=== PATIENT | male | born 1975 | race Caucasian/White ===

== ENCOUNTER 2021-09-04 17:00 | Outpatient (RCR) | payer OTHER, SELFPAY ==
--- NOTE | 2021-08-07 18:54 | HP.PTEVAL_ITS ---
Patient's Visit Information CAROLINE BENNETT is a 45 year old M referred to Physical Therapy by ALYSSA PASTRANA with a diagnosis of ACUTE LOW BACK PAIN WITH BILATERAL SCIATICA. Date of Evaluation: 08/07/21 Physical Therapist: Donavon Sánchez, PT, Cert MDT, OCS - Visit Plan Frequency: 2x /Week Duration: 4 Weeks Plan: PT INTERVETIONS GRADED POSTURAL EX'S ,DLS ,LE FLEXABLITY AND LUMBAR RO SOBIA AND MODALTIES. MODALTIES NOT COVERED - Subjective This 45 y/o male presents to physical therapy with acute bilateral LBP with radicular symptoms right leg. Onset of pain 2 months ago initial injury. Patient has had prior lumbar surgery 2013 lumbar discectomy L5-S1 then had revision 2015 L5-S1. Initially ,symptoms got better but still had mild symptoms. Most recently, carrying case of water from car ,felt muscle spasm right side then immediately developed radicular symptom right side. Then had mild symptoms left leg. but eventually symptoms went away. Seen DR recommended PT and flexural . Due to recent onset of pain ,patient uses cane . Aggravating factors walking, standing < less 2 minutes, bending or lifting. Alleviating resting ,sitting . Denies paresthesia/tingling ,but occasional right foot with burning. Coughing/sneezing+. Bowel/bladder -. Sleeping is pain at night. Job requires sitting. Patient pain and radicular symptoms affects job demands /QOL and walking. In past ,seen pain management injection didn't help. Prior PT did see therapist few visits recently. Location : buttock -hamstring -calf. SOCIAL: . VOCATION: [employer] - Pain Right Back Pain Intensity (Out of 10): 2 Pain Intensity Range: 10 Comment: ache Right Lower Extremity Pain Intensity (Out of 10): 8 Pain Intensity Range: N/A - Objective POSTURE: mild forward posture. GAIT: ambulated with straight cane antalgic gait painfull. NEURO: c/o burning right leg ,reflexes L3-4,L4-5,L5-S1 1/3,mytome weakness with + ANR. SYMMTRIES: align. LUMBAR ROM: mod loss pain leg ,extension mod pain leg ,right side mod loss pain ,left min/mod loss. MMT: quads 3/5 right, hamstrings 4-/5 ,hip flexion 4-/5,ankle 4/5 ,left 4/5 except quads/hams 4/5 ,hip 4-/5 ,ankle 4/5. FLEXABILITY: hamstring severe due to + ANR and pain - Special Tests L/S Slump test left side: Negative L/S Slump test right side: Positive L/S Left Straight Leg Raise: Negative L/S Right Straight Leg Raise: Positive Lumbar Standing: Flexion - Mechanical Response: No effect Lumbar Standing: Flexion - Symptoms During Testing: Peripheralizing Lumbar Standing: Flexion - Symptoms After Testing: Worse Lumbar Standing: Extension - Mechanical Response: No effect Lumbar Standing: Extension - Symptoms During Testing: Peripheralizing Lumbar Standing: Extension - Symptoms After Testing: Worse Lumbar Standing: Right Side Glides - Mechanical Response: No effect Lumbar Standing: Right Side [place] - Symptoms During Testing: Peripheralizing Lumbar Standing: Right Side [place] - Symptoms After Testing: Worse Lumbar Standing: Left Side [place] - Mechanical Response: No effect Lumbar Standing: Left Side [place] - Symptoms During Testing: No effect Lumbar Standing: Left Side [place] - Symptoms After Testing: No effect - Balance/Special Test Scores Oswestry Low Back Score: 36 - Goals Goal 1:: I with HEP to manage symptoms Goal Time Frame: 4-6 Weeks Goal 2:: Patient to decrease lumbar radiculopathy by 50% improvement to improve function with gait. Goal Time Frame: 4-6 Weeks Goal 3:: Patient to improve lumbar ROM for function recovery with less radiculoathy Goal Time Frame: 4-6 Weeks Goal 4:: Patient to increase strength of quads/hams 4-5/ to improve gait Goal Time Frame: 4-6 Weeks Goal 5:: Patient improve quality of gait with less antalgic gait 50% improvement Goal Time Frame: 4-6 Weeks Goal 6:: Patient to improve back owestry score by 5 points or > to improve function Goal Time Frame: 4-6 Weeks - Rehabilitation Potential Physical Therapy Diagnosis: This patient has h/o lumbar discectomy L-S1 X2 with new onset of right lower led radiculopathy worse in in leg to calf all motion testing testing and positional increase symptoms and worse ,walking < 2 mins unable to find position or movement thus possible, irreducible thus will benifit from skilled PT Rehabilitation Potential: Good - Anticipated Interventions Patient/Client Instruction: Educate patient on: Condition, Plan of Care For the Purpose of:: To decrease pain, To increase ROM, To improve muscle performance and motor function, To improve ability to perform ADL's, To increase tolerance to activity/condition/position, To improve ability of physical actions for home/community/work/leisure, To improve health of tissue, To decrease soft tissue restriction, To increase flexibility/ROM, To reduce risk of recurrence, To improve self management Therapeutic Exercise to Include: Strength training, Endurance training, Body mechanics, Postural training, Flexibilty training, Active ROM, Dynamic Lumbar Stabilization For the Purpose of:: To decrease pain, To increase ROM, To improve muscle performance and motor function, To improve ability to perform ADL's, To increase tolerance to activity/condition/position, To improve performance and independence with ADL's, To improve ability of physical actions for home/community/work/leisure, To improve health of tissue, To decrease soft tiss ue restriction, To increase flexibility/ROM, To reduce risk of recurrence TENS: Yes IF ES: Yes Cryotherapy (ice pack, ice massage): Yes Thermo therapy (hot pack): Yes Ultrasound (thermal/non thermal): Yes For the Purpose of:: To decrease pain, To increase ROM, To improve nutrient delivery to tissue, To increase oxygenation perfusion, To improve health of tissue, To decrease soft tissue restriction Thank you for the opportunity to evaluate your patient. For Medicare and Medicare HMO plans, please review the plan of care and approve it. It will need to be FAXED BACK to us at [phone] for Medicare purposes. For Medicare only, by signing this I certify the plan of care. Please let me know if there are questions or concerns regarding this plan of care. Physician Signature: Date:
--- NOTE | 2021-12-04 13:34 | HP.PT.NRP ---
CAROLINE BENNETT was seen in my office for initial evaluation on 08/07/21. The following Plan of Care was established for this patient: Initial Frequency: 2x /Week Initial Duration: 4 Weeks Patient/Client Instruction: Educate patient on: Condition, Plan of Care For the Purpose of:: To decrease pain, To increase ROM, To improve muscle performance and motor function, To improve ability to perform ADL's, To increase tolerance to activity/condition/position, To improve ability of physical actions for home/community/work/leisure, To improve health of tissue, To decrease soft tissue restriction, To increase flexibility/ROM, To reduce risk of recurrence, To improve self management Therapeutic Exercise to Include: Strength training, Endurance training, Body mechanics, Postural training, Flexibilty training, Active ROM, Dynamic Lumbar Stabilization For the Purpose of:: To decrease pain, To increase ROM, To improve muscle performance and motor function, To improve ability to perform ADL's, To increase tolerance to activity/condition/position, To improve performance and independence with ADL's, To improve ability of physical actions for home/community/work/leisure, To improve health of tissue, To decrease soft tissue restriction, To increase flexibility/ROM, To reduce risk of recurrence TENS: Yes IF ES: Yes Cryotherapy (ice pack, ice massage): Yes Thermo therapy (hot pack): Yes Ultrasound (thermal/non thermal): Yes For the Purpose of:: To decrease pain, To increase ROM, To improve nutrient delivery to tissue, To increase oxygenation perfusion, To improve health of tissue, To decrease soft tissue restriction This patient was last seen in our office . Pertinent comments regarding their Physical therapy will appear below: Patient was seen for LBP focusing on Dalia ex's ,DLS and postural ex's ,Doing better with pain but numbess is same thus is d/c . At this point I will be discontinuing this patient from physical therapy. I would be happy to see this patient again in the future if found appropriate by the physician. Thank you! Donavon Sánchez, PT, Cert MDT, OCS Balance/Gait/Functional tests - Balance/Special Test Scores Oswestry Low Back Score: 4
== END 2021-09-04 19:00 | disposition home or self-care (01) ==
LOC: PT 17:00
DX: M54.42 Lumbago with sciatica, left side (principal); M54.41 Lumbago with sciatica, right side
CPT/HCPCS: 97110; 97162

== ENCOUNTER 2022-02-01 13:21 | Emergency (ER) | payer OTHER, SELFPAY ==
[2022-02-01 13:27] VITALS: BP 140/91; PULSE 111; RESP 25; TEMP 36.8; O2SAT 97; BMI 43.9
--- NOTE | 2022-02-01 13:33 | EKG12_ITS ---
Test Reason : CP Blood Pressure : / mmHG Vent. Rate : 111 BPM Atrial Rate : 111 BPM P-R Int : 140 ms QRS Dur : 066 ms QT Int : 330 ms P-R-T Axes : 054 062 050 degrees QTc Int : 448 ms Sinus tachycardia Otherwise normal ECG Confirmed by RAMBO LAGUERRE, ELDER ([id number]), restaurant expeditor NOEMÍ GOMEZ ([id number]) on 02/05/2022 9:54:07 AM Referred By: JULISSA Confirmed By:AMANUEL RICKS MD
--- NOTE | 2022-02-01 13:33 | RAD_ITS ---
STUDY: X-RAY CHEST REASON FOR EXAM: Male, 46 years old. Chest pain TECHNIQUE: Single frontal view of the chest. COMPARISON: None. FINDINGS: The lungs are clear and expanded. There is no demonstrated pleural abnormality. Normal size heart. Normal mediastinum and tony. Normal visualized pulmonary arteries. Normal visualized aortic arch and descending thoracic aorta. Normal visualized thoracic spine. Normal visualized ribs, clavicles, and shoulders. There is no demonstrated abnormality of the visualized soft tissue structures of the upper abdomen. RAD/Chest 1 View (Portable) IMPRESSION: No acute cardiopulmonary process identified. Electronically Signed: Alexis Batista MD at 14:28 EDT ,
--- NOTE | 2022-02-01 13:35 | EDS_ITS ---
HPI History of Present Illness Chief Complaint: Chest Pain Narrative Narrative: Patient presents with chest tightness, shortness of breath, and clamminess that began when he was at work at approximately 1145, almost 2 hours ago. He has past medical history of diabetes for which he takes Metformin, hypertension, hypercholesterolemia. He felt chest tightness that was nonradiating. There is no exertional component to this. He also notes that his heart rate was above 120 because he states that his watch warned him. His boss was concerned so they recommended that he be evaluated and come to the emergency department via EMS. [facility] Medical History (Updated 02/01/22 @ 15:38 by Cong Carbajal MD) Diabetes type 2, controlled Hyperlipemia Hypertension Home Medications atorvastatin 40 mg PO DAILY 02/01/22 [History Last Taken Unknown] hydrochlorothiazide 25 mg PO DAILY 02/01/22 [History Last Taken Unknown] losartan 100 mg PO DAILY 02/01/22 [History Last Taken Unknown] metformin 1,000 mg PO DAILY 02/01/22 [History Last Taken Unknown] Allergy/AdvReac Type Severity Reaction Status Date / Time No Known Allergies Allergy Verified 02/01/22 13:43 Social History Smoking Status: Current every day smoker tobacco type: cigarettes ROS ROS ED ROS Narrative Constitutional: No fever, no chills. Positive clamminess. HEENT: No sore throat. No neck pain. No loss of vision. No rhinorrhea. Cardiovascular: Positive chest tightness/chest pain. No palpitations. No pedal edema. Respiratory: No cough, no shortness of breath. Abdominal: No abdominal pain. No nausea. No vomiting. Genitourinary: No dysuria. No hematuria. Musculoskeletal: No myalgias. No arthralgias. Neurologic: No headaches. No dizziness. No lightheadedness. Skin: No rash. No change in color. Psychiatric: No depression. No anxiety. EXAM Physical Exam Narrative Exam Narrative: Afebrile. Vital signs noted. HEENT: Normocephalic. Atraumatic. PERRL, EOMI. Neck soft and supple. No point tenderness or step off. Cardiovascular: Tachycardia at 111 bpm. No murmurs, rubs, or gallops appreciated. Respiratory: No tachypnea. Lungs clear to auscultation bilaterally. Gastrointestinal: Abdomen soft, obese, nontender, with normoactive bowel sounds. No rebound or guarding. Neurological: Awake. Alert. Nonfocal, nonlateralizing. Skin: No rash. Normal color. No pallor. Musculoskeletal: No pedal edema. Full range of motion extremities. Const Vital Signs: 02/01/22 13:27 02/01/22 13:41 Temperature 98.3 F Temperature Source Oral Pulse Rate 111 H Respiratory Rate 25 H Blood Pressure 140/91 H Blood Pressure Mean 107 Pulse Ox 97 Oxygen Delivery Method Room Air Room Air Heart Score History: Slightly/Non-Suspicious ECG: Normal Age: >45 - <65 years Risk Factors: >/= 3 Risk Factors or History of CAD Troponin: </= Normal Limit Score: 3 MDM MDM MDM Narrative Medical decision making narrative: Chest pain work-up was pursued. His EKG demonstrates sinus tachycardia 111 bpm without ectopy or acute ST changes. He Was Administered a Baby Aspirin. I will obtain basic laboratory work including CBC, CMP, D-dimer, and BNP along with a chest x-ray. He was administered aspi rin. Patient has an elevated white count of 13.7 which I think is nonspecific, his hemoglobin is also hemoconcentrated at 18.4. He states he does not take testosterone supplementation. Platelet count normal at 249. His D-dimer is negative at less than 0.27. Electrolyte panel is grossly unremarkable supper glucose 118 inappropriately elevated with a normal anion gap of 6. Initial high-sensitivity troponin is negative at 6. BNP is normal. Chest x-ray is read by myself and shows no acute process. At this point in time, his heart rate has come down to the 90s. Pulse ox is 97% on room air. He is awaiting his second troponin. As long as this is negative, I do feel that he could be discharged safely home to follow-up with his primary care physician for outpatient stress testing. Repeat troponin returns at 6 for a delta troponin of 0. At this point in time, I feel he can be discharged safely home with follow-up to his primary care physician for outpatient stress testing. Return instructions were reviewed. Disposition is discharged home in stable condition. Lab Data Attestation: I reviewed the patient's lab results. Labs: Laboratory Results - last 24 hr 02/01/22 02/01/22 02/01/22 13:32 13:32 13:32 WBC 13.7 H RBC 6.04 Hgb 18.4 H* Hct 51.1 MCV 84.6 MCH 30.5 MCHC 36.0 RDW Std Deviation 39.8 RDW Coeff of Christina 13.0 Plt Count 249 MPV 9.6 Immature Gran % (Auto) 0.400 Neut % (Auto) 85.4 H Lymph % (Auto) 7.2 L [place] % (Auto) 5.5 Eos % (Auto) 1.3 Baso % (Auto) 0.2 Absolute Neuts (auto) 11.7 H Absolute Lymphs (auto) 0.98 Nucleated RBC % 0 Diff Path Review May foll D-Dimer Quant (PE/DVT) < 0.27 L Sodium 137 Potassium 3.9 Chloride 104 Carbon Dioxide 27.0 Anion Gap 6 BUN 16 Creatinine 1.04 Estim Creat Clear Calc 93.52 Est GFR (MDRD) Af Amer 98 Est GFR (MDRD) Non-Af 81 BUN/Creatinine Ratio 15.4 Glucose 118 H Calcium 9.1 Troponin I High Sens 6 B-Natriuretic Peptide 02/01/22 02/01/22 13:32 15:24 WBC RBC Hgb Hct MCV MCH MCHC RDW Std Deviation RDW Coeff of Christina Plt Count MPV Immature Gran % (Auto) Neut % (Auto) Lymph % (Auto) [place] % (Auto) Eos % (Auto) Baso % (Auto) Absolute Neuts (auto) Absolute Lymphs (auto) Nucleated RBC % Diff Path Review D-Dimer Quant (PE/DVT) Sodium Potassium Chloride Carbon Dioxide Anion Gap BUN Creatinine Estim Creat Clear Calc Est GFR (MDRD) Af Amer Est GFR (MDRD) Non-Af BUN/Creatinine Ratio Glucose Calcium Troponin I High Sens 6 B-Natriuretic Peptide < 2.0 Radiography Diagnostic Testing: Clinical Impression(s) from Imaging Studies Chest X-Ray 02/01/22 13:33 IMPRESSION: No acute cardiopulmonary process identified. Electronically Signed: Alexis Batista MD at 14:28 EDT , Discharge Plan Triage Chief Complaint: Chest Pain ED Provider: Cong Carbajal Dx/Rx/DC Orders Clinical Impression: Chest pain Instructions: ED Chest Pain, Uncertain Cause Prescriptions: No Action atorvastatin 40 mg tablet 40 mg PO DAILY RF: 0 metformin 1,000 mg tablet 1,000 mg PO DAILY RF: 0 hydrochlorothiazide 25 mg tablet 25 mg PO DAILY RF: 0 losartan 100 mg tablet 100 mg PO DAILY RF: 0 Referrals: ALYSSA PASTRANA [Other] - 1-2 Days if not improving Disposition Disposition: Home, Self Care
[2022-02-01] MEDS: Aspirin 81 MG TAB.CHEW 324 MG PO (13:40)
[2022-02-01 13:44] LABS: Absolute Lymphocyte Count 0.98 X10^3/uL (0.83-4.51); Absolute Neutrophil Count 11.7 X10^3/uL (2.0-7.7); Basophil# 0.03 X10^3/uL; Basophil% 0.2 % (0-1); Eosinophil# 0.18 X10^3/uL; Eosinophils% 1.3 % (0-5); Hematocrit 51.1 % (40-54); Lymphocyte # 0.98 X10^3/ul (0.83-4.51); Lymphocyte % 7.2 % (19-41); Mean Corpuscular Hgb 30.5 pg (27.0-32.0); Mean Corpuscular Volume 84.6 fL (80-94); Mean Platelet Vol. 9.6 fl (6.2-12.0); Monocyte# 0.75 X10^3/uL; Monocyte% 5.5 % (0-10); NRBC Flagged by Analyzer 0 % (0-5); Neutrophil # 11.65 X10^3/uL (2.7-7.7); Neutrophil % 85.4 % (47-70); Platelet Count 249 K/mm3 (150-450); RBC Distribution Width SD 39.8 fl (35.1-43.9); Red Blood Count 6.04 M/mm3 (4.6-6.2); White Blood Count 13.7 K/mm3 (4.4-11.0)
[2022-02-01 13:53] LABS: Hemoglobin 18.4 g/dL (13.0-16.5)
[2022-02-01 14:01] LABS: Anion Gap 6 (5-15); BUN 16 mg/dL (7-18); BUN/Creat Ratio 15.4 RATIO (10-20); Calcium,Total 9.1 mg/dL (8.5-10.1); Chloride 104 mmol/L (98-107); Creatinine, Serum 1.04 mg/dL (0.70-1.30); EST Glomerular Filtration Rate 81 mL/min (>60); Est Glom Filt Rate - Afr Amer 98 mL/min (>60); Estimated Creatinine Clearance 93.52 ml/min; Glucose 118 mg/dL (74-106); Potassium 3.9 mmol/L (3.5-5.1); Sodium Level 137 mmol/L (136-145); Troponin-I HS 6 pg/mL (3.0-78.0)
[2022-02-01 14:05] LABS: D-Dimer Quantitative (DVT/PE) < 0.27 FEU/ug/m (0.27-0.49)
[2022-02-01 14:30] LABS: BNP,B-Type NATRIURETIC PEPTIDE < 2.0 pg/mL (0-100)
[2022-02-01 15:51] LABS: Troponin-I HS 6 pg/mL (3.0-78.0)
[2022-02-01 16:00] VITALS: BP 128/82
[2022-02-02 13:06] LABS: Pathologist Review Reviewed
== END 2022-02-01 16:01 | disposition home or self-care (01) ==
PROVIDERS: Emergency Provider Emergency Medicine; Visit Provider Emergency Medicine
DX: R07.9 Chest pain, unspecified (principal); E11.9 Type 2 diabetes mellitus without complications; I10 Essential (primary) hypertension; E78.5 Hyperlipidemia, unspecified; F17.210 Nicotine dependence, cigarettes, uncomplicated; Z79.84 Long term (current) use of oral hypoglycemic drugs; Z79.899 Other long term (current) drug therapy
CPT/HCPCS: 71045; 80048; 83880; 84484; 85025; 85379; 93005; 99285; A4216